=== PATIENT | female | born 2000 | race Caucasian/White ===

== ENCOUNTER 2019-06-11 14:51 | Outpatient (CLI) | payer BC ==
--- NOTE | 2019-06-11 16:52 | MRI ---
MRI OF THE BRAIN WITH AND WITHOUT IV CONTRAST: 06/11/19 HISTORY: Post-concussion syndrome. Head injury. Headache. FINDINGS: No restricted diffusion is seen. No evidence of infarct, hemorrhage, mass, midline shift, or abnormal extra-axial fluid collections is seen. There is no abnormal post contrast enhancement. 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 No adjacent mass effect or edema is seen. The ventricular size is normal and the basilar cisterns patent. The visualized paranasal sinuses and mastoid air cells are well aerated. IMPRESSION: Normal exam. POS: [facility]
== END 2019-06-11 14:52 | disposition home or self-care (01) ==
LOC: SCSMRI 14:51
PROVIDERS: ATTEND Nurse Practitioner Acute Care
DX: F07.81 Postconcussional syndrome (principal)
CPT/HCPCS: 70553